=== PATIENT | male | born 1995 | race Asian ===

== ENCOUNTER 2016-11-08 19:57 | Emergency (ER) | payer OTHER ==
[~2016-11-08] VITALS: Ht 177.8 cm; Wt 69.6 kg
[2016-11-08 20:09] VITALS: TEMP 37; Ht 177.8 cm; Wt 69.6 kg
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
[2016-11-08] MEDS ORDERED: TRAMADOL HCL 50 MG TAB PO STA (21:36)
[2016-11-08] MEDS ORDERED: IBUPROFEN 800 MG TAB PO STA (21:36)
[2016-11-08] MEDS ORDERED: ACETAMINOPHEN 500 MG TAB PO STA (21:36)
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
[2016-11-08] MEDS ORDERED: SODIUM CHLORIDE 0.9% 1000ML 1,000 ML IV STA (23:03)
[2016-11-08] MEDS ORDERED: OPTIRAY 320 IV PRN (23:15)
[2016-11-08 23:20] LABS: BASO % 0.1 %; BASO ABS # 0.02 K/uL (0-0.2); COMPLETE YES; EOS % 0.2 %; HEMATOCRIT 43.5 % (42-52); IG% 0.3 %; LYMPH % 14.9 %; LYMPH ABS # 2.26 K/uL (1.2-3.4); MEAN CELL VOLUME 90.6 fL (80-100); MEAN CORPUSCULAR HEMOGLOBIN 32.1 pg (25-34); MEAN CORPUSCULAR HGB CONC 35.4 g/dl (32-36); MEAN PLATELET VOLUME 9.8 fL (7.4-10.4); MONO % 4.5 %; PLATELET COUNT 180 K/uL (130-400); WHITE BLOOD COUNT 15.14 K/uL (4.8-10.8)
[2016-11-08 23:24] LABS: ISTAT CREATININE 0.9 mg/dl (0.6-1.3); ISTAT IONIZED CALCIUM 1.18 mmol/l (1.12-1.32)
[2016-11-08 23:51] LABS: ALKALINE PHOSPHATASE 84 U/L (45-117); ALT/SGPT 17 U/L (12-78); AST/SGOT 20 U/L (15-37)
[2016-11-09 00:26] LABS: VEN BLD GAS O2 SATURATION 71.9 %; VEN BLOOD GAS BASE EXCESS -0.3 mEq/L
[2016-11-09 00:32] LABS: INR 1.1 (0.9-1.1); PARTIAL THROMBOPLASTIN RATIO 1.1; PROTHROMBIN TIME (PATIENT) 12.1 SECONDS (9.0-12.0)
[2016-11-09] MEDS ORDERED: SODIUM CHLORIDE 0.9% 1000ML 1,000 ML IV STA ×2 (01:04→01:16)
[2016-11-09 01:37] VITALS: BP 126/77; PULSE 99; O2SAT 100
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
== END 2016-11-09 01:38 | disposition short-term general hospital (02) ==
LOC: C.EDB 20:00 → C.EDC 11-09 01:38
DX: S36.039A Unspecified laceration of spleen, initial encounter (principal); V19.3XXA Pedal cyclist (driver) (passenger) injured in unspecified nontraffic accident, initial encounter; R10.32 Left lower quadrant pain